=== PATIENT | male | born 1965 | race Caucasian/White ===

== ENCOUNTER 2017-10-15 07:13 | Day surgery (SDC) | payer BC ==
[~2017-10-15 07:13] MED LIST: Lactated Ringers 1,000 ML IV SCH; Sodium Chloride 0.9% 10 ML Syringe FLUSH PRN
[2017-10-15] MEDS ORDERED: Propofol 200 MG/20 ML SDV IV ONE (09:00)
[2017-10-15] MEDS ORDERED: Midazolam 1 MG/ML 2 ML SDV IV ONE (09:00)
--- NOTE | 2017-10-15 09:32 | PCM.OPNOTE ---
- General Post-Op/Procedure Note Date of Surgery/Procedure: 10/15/17 Operative Procedure(s): c scope with bx Findings: ascending colon polyp rectal polyps Pre Op Diagnosis: screening Post-Op Diagnosis: ascending colon polyp. rectal polyps Anesthesia Technique: MAC Primary Surgeon: Buck Darby Anesthesia Provider: Jessica Arteaga Pathology: ascending colon polyp rectal polyps Condition: Good Free Text/Narrative:: see dictation
--- NOTE | 2017-10-15 17:17 | OR ---
DATE OF OPERATION: 10/15/2017 SURGEON: Buck Darby MD PROCEDURE PERFORMED: Colonoscopy with cold forceps biopsy. PREOPERATIVE DIAGNOSIS: Colon cancer screening. POSTOPERATIVE DIAGNOSIS: Ascending colon polyp and rectal polyp x5. INDICATIONS FOR PROCEDURE: This is a 52-year-old white male who presents for his initial screening colonoscopy. He was offered and accepted same. DESCRIPTION OF OPERATION: After an excellent IV sedation was administered, digital rectal exam was performed. No marked abnormality was noted. Flexible colonoscope was inserted and advanced to the cecum without difficulty. The following findings were noted. Ascending colon small polypoid lesion biopsied with cold biopsy forceps sent for permanent. Transverse colon, unremarkable. Descending colon, unremarkable. Sigmoid, unremarkable. Rectum, in the rectum there were approximately five hyperplastic appearing areas which were biopsied and submitted in one container. Colon was deflated. Scope was removed. The patient tolerated the procedure well and was taken to recovery. /[id number] /ARABELLAL
== END 2017-10-15 10:20 | disposition home or self-care (01) ==
LOC: FB.SDS 07:13
PROVIDERS: ATTEND Surgery
DX: Z12.11 Encounter for screening for malignant neoplasm of colon (principal); K63.5 Polyp of colon; K62.1 Rectal polyp; E03.9 Hypothyroidism, unspecified; E78.4 Other hyperlipidemia; G47.33 Obstructive sleep apnea (adult) (pediatric); Z79.82 Long term (current) use of aspirin; Z79.899 Other long term (current) drug therapy
CPT/HCPCS: 88305; J2250; J2704; J7120